=== PATIENT | male | born 1980 | race Caucasian/White ===

== ENCOUNTER 2018-10-29 08:36 | Day surgery (SDC) | payer OTHER ==
[~2018-10-29] VITALS: Ht 182.9 cm; Wt 140.2 kg
[~2018-10-29 08:36] MED LIST: BENTYL10 MG PO; CRUTCH3 USE; CYCL10 PO; ERYT.5TO OS; ESOM20 PO; HYDACE5 PO; METO5A PO; NAPR500 PO; OXYACE5T PO; Omeprazole20 M1 PO; Percocet 5-3251 EACH PO; RXERYTOPTH OP; RXPROACE PO
--- NOTE | 2018-10-29 10:05 | NUR ---
10/29/18 Patricia Mccain PATIENT WAS NOTIFIED THE ROOM WAS RUNNING SLIGHTLY BEHIND. HE WAS COMFORTABLE, HAD CALL LIGHT AND NO NEEDS AT THE TIME WE SPOKE.
--- NOTE | 2018-10-29 10:37 | NUR ---
10/29/18 Patricia Sanchez ATTEMPTED SAVORY 20 DILATOR FIRST BUT WAS UNSUCCESSFUL AND WENT TO [facility] WITH SUCCESS
== END 2018-10-29 11:00 | disposition home or self-care (01) ==
LOC: ORSCSDS 08:36
PROVIDERS: Internal Medicine Gastroenterology
PROC: 0DB68ZX Excision of Stomach, Via Natural or Artificial Opening Endoscopic, Diagnostic (ICD-10-PCS; principal; 2018-10-29 09:45)
PROC: 0DB98ZX Excision of Duodenum, Via Natural or Artificial Opening Endoscopic, Diagnostic (ICD-10-PCS; principal; 2018-10-29 09:45)
PROC: 0D758ZZ Dilation of Esophagus, Via Natural or Artificial Opening Endoscopic (ICD-10-PCS; principal; 2018-10-29 09:45)
PROC: 0DB58ZX Excision of Esophagus, Via Natural or Artificial Opening Endoscopic, Diagnostic (ICD-10-PCS; principal; 2018-10-29 09:45)
DX: R13.10 Dysphagia, unspecified (principal); K21.0 Gastro-esophageal reflux disease with esophagitis; J45.909 Unspecified asthma, uncomplicated; Z87.891 Personal history of nicotine dependence
CPT/HCPCS: 88305; 88312; 88342; J0330; J1980; J2250; J2405; J2704; J7120

== ENCOUNTER → 2021-04-21 | Outpatient (CLI) | payer OTHER ==
[2021-04-21 10:06] LABS: Free Thyroxine 0.85 ng/dL (0.70-1.60); Thyroid Stimulating Hormone 1.465 uIU/mL (0.360-4.800)
== END ==
LOC: LAB SHORT 09:42 → LAB 09:42
PROVIDERS: Physician Assistant
DX: E66.9 Obesity, unspecified (principal); Z88.1 Allergy status to other antibiotic agents
CPT/HCPCS: 84439; 84443